=== PATIENT | male | born 1985 | race Caucasian/White ===

== ENCOUNTER 2019-02-17 14:12 | Emergency (ER) | payer OTHER ==
[~2019-02-17] VITALS: Ht 160 cm; Wt 66.2 kg
[2019-02-17 14:20] VITALS: BP 160/83
== END 2019-02-17 15:27 | disposition home or self-care (01) ==
LOC: ER 14:15
DX: L02.414 Cutaneous abscess of left upper limb (principal); Z59.0 Homelessness

== ENCOUNTER 2019-10-31 15:46 | Emergency (ER) | payer OTHER ==
[~2019-10-31] VITALS: Ht 160 cm; Wt 65.8 kg
--- NOTE | 2019-10-31 16:00 | NUR ---
BIBS TO ER BED 7. AAOX4. NOT IN RESP DISTRESS. AMBULATORY. CAME IN FOR R UPPER ARM AND R FOREARM ABCSCESS X 1 MONTH. NOTED WING ABSCESS DRAINING WITH PUSS AND RFA IS A HUGE LUMP THAT IS INTACT. RATES PAIN 9/10. AWAITING MD FOR EVAL.
[2019-10-31] MEDS ORDERED: MORPHINE SULFATE INJ 2 MG/ML DISP.SYRIN IM ONE (16:30)
[2019-10-31] MEDS ORDERED: SULFAMETH/TRIMETH 800/160 MG 1 UDTAB TABLET PO ONE (16:30)
[2019-10-31] MEDS ORDERED: TDAP [DIPH/PERTUSSIS/TET] 0.5 ML VIAL IM ONE ×2 (16:30→16:55)
[2019-10-31] MEDS ORDERED: LIDOCAINE 1%-EPI 1:100,000 20 ML VIAL TP ONE (16:30)
[2019-10-31] MEDS ORDERED: BACI/NEOM/POLY B OINT PKT 1 UDPKT PACKET TP ONE (16:30)
[2019-10-31] MEDS ORDERED: CEPHALEXIN MONOHYDRATE 500 MG CAPSULE PO ONE ×2 (16:30→16:54)
[2019-10-31] MEDS ORDERED: IV NS 0.9% 1,000 ML BAG IV ONE (16:30)
[2019-10-31] MEDS ORDERED: HYDROCODONE/APAP 5/325MG TABLET PO ONE (16:30)
[2019-10-31] MEDS ORDERED: PIPERACILLIN /TAZOBACTAM 3.375 G in IV D5W 50 ML IV ONE (16:30)
[2019-10-31] MEDS ORDERED: IBUPROFEN 600 MG TABLET PO ONE ×2 (16:30→16:54)
[2019-10-31] MEDS ORDERED: LIDOCAINE 0.5%-EPI 1:200,000 50 ML VIAL ONE (16:53)
[2019-10-31] MEDS ORDERED: PIPERACILLIN /TAZOBACTAM 3.375 G VIAL IV ONE (16:53)
[2019-10-31] MEDS ORDERED: BACI/NEOM/POLY B OINT PKT 1 UDPKT PACKET ONE (16:53)
[2019-10-31] MEDS ORDERED: SULFAMETH/TRIMETH 800/160 MG 1 UDTAB TABLET ONE (16:54)
[2019-10-31] MEDS ORDERED: HYDROCODONE/APAP 5/325MG TABLET ONE (16:54)
[2019-10-31] MEDS ORDERED: MORPHINE SULFATE INJ 4 MG/ML DISP.SYRIN ONE ×2 (16:54→20:57)
[2019-10-31 17:18] LABS: BASOPHILS # (AUTO) 0.1 /CMM (0.0-0.2); BASOPHILS % (AUTO) 0.5 % (0.0-2.0); EOSINOPHILS % (AUTO) 0.8 % (0.0-6.0); HEMATOCRIT 34 % (39-51); HEMOGLOBIN 11.2 g/dL (13.5-17.5); LYMPHOCYTES # (AUTO) 1.6 /CMM (0.8-4.8); LYMPHOCYTES % (AUTO) 11.3 % (20.0-44.0); MEAN CORPUSCULAR HGB CONC 33 g/dl (31.0-36.0); MEAN CORPUSCULAR VOLUME 83 fL (80-96); MONOCYTES # (AUTO) 1.2 /CMM (0.1-1.30); MONOCYTES % (AUTO) 8.4 % (2.0-12.0); NEUTROPHILS # (AUTO) 11.3 /CMM (1.8-8.9); PLATELET COUNT (AUTO) 429 /CMM (150-450); RED BLOOD CELL COUNT(AUTO) 4.08 MIL/uL (4.5-6.0); WHITE BLOOD COUNT (AUTO) 14.3 K/uL (4.3-11.0)
--- NOTE | 2019-10-31 17:19 | NUR ---
VERIFIED WITH MD REGARDING ORDERS. MD CANCELLED ALL PO MEDS AND CHANGED TO IV MEDS. PER MD GIVE IV MEDS.
[2019-10-31 17:33] LABS: ALBUMIN 2.8 g/dL (3.4-5.0); BILIRUBIN,DIRECT 0.1 mg/dL (0.0-0.2); BILIRUBIN,TOTAL 0.5 mg/dL (0.2-1.0); CALCIUM, SERUM 9.3 mg/dL (8.5-10.1); POTASSIUM 4.1 mmol/L (3.5-5.1); TOTAL PROTEIN, SERUM 8.2 g/dL (6.4-8.2)
[2019-10-31] MEDS ORDERED: IOHEXOL-300 100 ML VIAL IV ONE (18:16)
[2019-10-31] MEDS ORDERED: IV NS 0.9% 250 ML IV ONE (18:16)
--- NOTE | 2019-10-31 19:35 | NUR ---
COVID SWAB DONE AND SENT TO LAB
--- NOTE | 2019-10-31 19:50 | NUR ---
[facility] CALLED FOR TRANSPORT, NO BEDS AVAILABLE.
[2019-10-31] MEDS ORDERED: MORPHINE SULFATE INJ 10 MG/ML DISP.SYRIN IV ONE (21:00)
--- NOTE | 2019-10-31 21:01 | NUR ---
CALLED DR SMITH. DR GEORGE SPOKE WITH HIM.
[2019-10-31] MEDS ORDERED: KETAMINE HCL (500MG/10ML) 50 MG/ML VIAL ONE (21:44)
[2019-10-31] MEDS ORDERED: KETAMINE HCL(200MG/20ML) 10 MG/ML VIAL IV ONE (22:00)
--- NOTE | 2019-10-31 22:33 | NUR ---
AT BEDSIDE FOR I&D PROCEDURE. GAVE THE KETAMINE 100MG IVP X 1.
--- NOTE | 2019-10-31 22:42 | NUR ---
AT BEDSIDE FOR I&D. WOUND CULTURE OF RFA ABSCESS AND SENT TO LAB
--- NOTE | 2019-11-01 00:09 | NUR ---
Patient does not wish to proceed with medical care recommended by Shirin Ni. Patient given information related to possible complications, up to and including , which could occur as a result of leaving the hospital at this time. Patient verbalizes understanding of risks involved due to leaving against medical advice. Patient has signed AMA form.
--- NOTE | 2019-11-01 00:09 | NUR ---
Note gael in ED - 11/01/19 at 0012 by HENRI Patient discharged to home in stable condition. Written and verbal after care instructions given. Patient verbalizes understanding of instruction.IV removed. Catheter intact and site benign. Pressure and 4x4 applied to site. No bleeding noted. Pt ambulatory with a steady gait
[2019-11-01 00:12] VITALS: BP 124/68
--- NOTE | 2019-11-01 02:57 | NUR ---
PT AMBULATORY W/ STEADY GAIT
== END 2019-11-01 02:57 | disposition left against medical advice (07) ==
LOC: ER 15:49
DX: L02.413 Cutaneous abscess of right upper limb (principal); L03.113 Cellulitis of right upper limb; Z59.0 Homelessness; Z11.59 Encounter for screening for other viral diseases; F17.200 Nicotine dependence, unspecified, uncomplicated; S21.132A Puncture wound without foreign body of left front wall of thorax without penetration into thoracic cavity, initial encounter; S51.831A Puncture wound without foreign body of right forearm, initial encounter; W26.8XXA Contact with other sharp object(s), not elsewhere classified, initial encounter; Y93.39 Activity, other involving climbing, rappelling and jumping off; Y92.89 Other specified places as the place of occurrence of the external cause
CPT/HCPCS: 10061; 36415; 73201; 80048; 80076; 83605; 85025; 87040; 87070; 87077; 87081; 87426; 90471; 90715; 96365; 96372; 96375; 99285; A6403; C9803; J2270 ×2; J2543; J3490 ×2; J7030 ×2; J7050; J7060; Q9967; U0003

== ENCOUNTER 2020-02-15 12:01 | Emergency (ER) | payer OTHER ==
[~2020-02-15] VITALS: Ht 160 cm; Wt 68.0 kg
--- NOTE | 2020-02-15 12:15 | NUR ---
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
[2020-02-15] MEDS ORDERED: LIDOCAINE 1%-EPI 1:100,000 20 ML VIAL ONE (13:17)
--- NOTE | 2020-02-15 13:54 | NUR ---
DR MORGAN AT BEDSIDE FOR I&D
[2020-02-15] MEDS ORDERED: LIDOCAINE 0.5%-EPI 1:200,000 50 ML VIAL ONE (14:04)
--- NOTE | 2020-02-15 14:24 | NUR ---
DR MORGAN DONE WITH I&D AT PATIENTS R ARM
[2020-02-15] MEDS ORDERED: IBUPROFEN 600 MG TABLET ONE (14:25)
[2020-02-15] MEDS ORDERED: IBUPROFEN 600 MG TABLET PO ONE (14:30)
--- NOTE | 2020-02-15 14:30 | NUR ---
WOUND CARE DONE
--- NOTE | 2020-02-15 14:36 | NUR ---
Patient given written and verbal discharge instructions. Patient verbalizes understanding of instructions. Patient is ambulatory with steady gait. Refuses offer of [facility] placement. Patient given list of available shelters in surrounding area. All belongings with the patient. On proper clothing upon discharge. Name band removed.
[2020-02-15 14:41] VITALS: BP 106/62
== END 2020-02-15 14:41 | disposition home or self-care (01) ==
LOC: ER 12:06
DX: L02.413 Cutaneous abscess of right upper limb (principal); F17.210 Nicotine dependence, cigarettes, uncomplicated; Z59.0 Homelessness
CPT/HCPCS: 10061; 99284; A6403 ×2; A6407; J3490 ×2

== ENCOUNTER 2020-09-07 12:44 | Emergency (ER) | payer OTHER ==
[~2020-09-07] VITALS: Ht 160 cm; Wt 72.1 kg
--- NOTE | 2020-09-07 12:44 | NUR ---
PT BIB SELF C/O L ELBOW SWELLING, S/P GETTING "POKE" BY UNKNOWN OBJECT 1 WEEK AGO. PT IS AAOX4, NOT IN RESPIRATORY DISTRESS, V/S STABLE, KEPT RESTED AND COMFORTABLE. WILL CONTINUE TO MONITOR.
--- NOTE | 2020-09-07 13:00 | NUR ---
SEEN AND EXAMINED BY .
--- NOTE | 2020-09-07 13:09 | NUR ---
TELEPHONE CLEANER AT BEDSIDE FOR XRAY.
--- NOTE | 2020-09-07 13:27 | NUR ---
ER PHLEB AT BEDSIDE FOR BLOOD DRAW.
[2020-09-07 13:47] LABS: BASOPHILS # (AUTO) 0.1 /CMM (0.0-0.2); BASOPHILS % (AUTO) 0.5 % (0.0-2.0); EOSINOPHILS % (AUTO) 0.6 % (0.0-6.0); HEMATOCRIT 32 % (39-51); HEMOGLOBIN 10.3 g/dL (13.5-17.5); LYMPHOCYTES # (AUTO) 1.9 /CMM (0.8-4.8); LYMPHOCYTES % (AUTO) 12.6 % (20.0-44.0); MEAN CORPUSCULAR HGB CONC 32 g/dl (31.0-36.0); MEAN CORPUSCULAR VOLUME 80 fL (80-96); MONOCYTES # (AUTO) 1.1 /CMM (0.1-1.30); MONOCYTES % (AUTO) 7.7 % (2.0-12.0); NEUTROPHILS # (AUTO) 11.7 /CMM (1.8-8.9); NEUTROPHILS % (AUTO) 78.6 % (43.0-81.0); PLATELET COUNT (AUTO) 349 /CMM (150-450); RED BLOOD CELL COUNT(AUTO) 4.02 MIL/uL (4.5-6.0); WHITE BLOOD COUNT (AUTO) 14.9 K/uL (4.3-11.0)
[2020-09-07 13:55] LABS: CALCIUM, SERUM 8.9 mg/dL (8.5-10.1); POTASSIUM 3.7 mmol/L (3.5-5.1)
[2020-09-07] MEDS ORDERED: VANCOMYCIN 1 GM in IV D5W 250 ML IV ONE (14:30)
[2020-09-07] MEDS ORDERED: PIPERACILLIN /TAZOBACTAM 3.375 G in IV D5W 50 ML IV ONE (14:30)
[2020-09-07] MEDS ORDERED: IV NS 0.9% 1,000 ML BAG IV ONE (14:30)
[2020-09-07] MEDS ORDERED: CLIN300C12 PO (15:17)
[2020-09-07] MEDS ORDERED: SULF1TAB48 PO (15:17)
--- NOTE | 2020-09-07 15:45 | NUR ---
IV removed. Catheter intact and site benign. Pressure and 4x4 applied to site. No bleeding noted.
--- NOTE | 2020-09-07 15:48 | NUR ---
Patient does not wish to proceed with medical care recommended by Dr. Buck. Patient given information related to possible complications, up to and including , which could occur as a result of leaving the hospital at this time. Patient verbalizes understanding of risks involved due to leaving against medical advice. Patient has signed AMA form.
[2020-09-07 15:57] VITALS: BP 127/73
[2020-09-07 16:51] LABS: C-REACTIVE PROTEIN 17.7 mg/dL (0.0-0.9)
== END 2020-09-07 15:57 | disposition left against medical advice (07) ==
LOC: ER 12:48
DX: L03.114 Cellulitis of left upper limb (principal); L02.414 Cutaneous abscess of left upper limb; F17.210 Nicotine dependence, cigarettes, uncomplicated
CPT/HCPCS: 36415; 71045; 73080; 80048; 83605; 84145; 85025; 85652; 85730; 86140; 93005; 96365; 96368; 99285; J2543; J3370; J7060

== ENCOUNTER 2021-08-22 14:01 | Emergency (ER) | payer OTHER ==
[~2021-08-22] VITALS: Ht 160 cm; Wt 68.0 kg
[~2021-08-22 14:01] MED LIST: CLIN300C12 PO; SULF1TAB48 PO
--- NOTE | 2021-08-22 14:45 | NUR ---
BIBSELF LEFT lateral arm abcess/red/swollen/drainage". AMBULATORY, AAOX4. SEEN AND EXAMINED BY
[2021-08-22] MEDS ORDERED: IBUP-1953 PO (14:56)
[2021-08-22] MEDS ORDERED: CEPH500T PO (14:56)
[2021-08-22] MEDS ORDERED: SULF1TAB48 PO (14:56)
[2021-08-22 15:23] VITALS: BP 105/65
--- NOTE | 2021-08-22 15:23 | NUR ---
Patient discharged to home in stable condition. Written and verbal after care instructions given. Patient verbalizes understanding of instruction.
== END 2021-08-22 15:23 | disposition home or self-care (01) ==
LOC: ER 14:10
DX: L02.414 Cutaneous abscess of left upper limb (principal); L03.113 Cellulitis of right upper limb; L03.114 Cellulitis of left upper limb; F17.200 Nicotine dependence, unspecified, uncomplicated; Z59.00 Homelessness unspecified; Z79.899 Other long term (current) drug therapy